=== PATIENT | female | born 1960 | race Caucasian/White ===

== ENCOUNTER 2017-12-07 05:51 | Inpatient (IN) | payer OTHER ==
[~2017-12-07] VITALS: Ht 157.5 cm; Wt 63.0 kg
[~2017-12-07 05:51] MED LIST: CREON1 EC1 PO; PRI20; PRILOSEC40 MG PO; VIC
[2017-12-07 06:03] VITALS: Ht 157.5 cm; Wt 63.0 kg
[2017-12-07 06:58] LABS: CALCIUM 8.4 mg/dL (8.5-10.1); CARBON DIOXIDE 25.9 mmol/L (21-32); CHLORIDE SERUM 101 mmol/L (98-107); CREATININE SERUM 0.7 mg/dL (0.6-1.0); GFR1 > 60 mL/min; GLUCOSE SERUM 244 mg/dL (74-106); POTASSIUM SERUM 3.3 mmol/L (3.5-5.1); SODIUM SERUM 137 mmol/L (136-145)
[2017-12-07 07:05] LABS: ALKALINE PHOSPHATASE 316 U/L (46-116); ALT/SGPT 107 U/L (14-59); AMYLASE 59 U/L (25-115); AST/SGOT 203 U/L (15-37); BILIRUBIN TOTAL 2.59 mg/dL (0.20-1.00); LIPASE 416 IU/L (73-393); TOTAL PROTEIN, SERUM 6.7 g/dL (6.4-8.2)
[2017-12-07 07:06] LABS: ALBUMIN 3.2 g/dL (3.4-5.0)
[2017-12-07 07:08] LABS: BASOPHIL % 0.1 % (0-2); PLATELET COUNT 216 x10^3mcL (130-400); RED CELL DISTRIBUTION WIDTH 14.5 % (11.5-14.5)
[2017-12-07 10:58] VITALS: BP 106/68
[2017-12-07 13:41] VITALS: BP 108/76
[2017-12-07 17:13] VITALS: BP 134/84
[2017-12-07 20:59] VITALS: BP 135/90
[2017-12-08 04:59] LABS: microscopic required? NO
[2017-12-08 05:07] LABS: urine erythrocyte NEGATIVE (NEGATIVE)
[2017-12-08 05:42] VITALS: BP 133/85
[2017-12-08 06:01] LABS: BASOPHIL % 0.3 % (0-2); PLATELET COUNT 162 x10^3mcL (130-400)
[2017-12-08 06:19] LABS: CALCIUM 7.9 mg/dL (8.5-10.1); CARBON DIOXIDE 25.3 mmol/L (21-32); CREATININE SERUM 0.6 mg/dL (0.6-1.0); GFR1 > 60 mL/min
[2017-12-08 06:32] LABS: CHLORIDE SERUM 105 mmol/L (98-107); GLUCOSE SERUM 89 mg/dL (74-106); POTASSIUM SERUM 3.6 mmol/L (3.5-5.1); SODIUM SERUM 140 mmol/L (136-145)
[2017-12-08 06:55] LABS: RED CELL DISTRIBUTION WIDTH 14.7 % (11.5-14.5)
[2017-12-08 09:17] VITALS: BP 145/90
[2017-12-08 12:48] LABS: BILIRUBIN DIRECT 4.44 mg/dL (0.0-0.2); BILIRUBIN TOTAL 5.53 mg/dL (0.20-1.00)
[2017-12-08 12:57] LABS: ALBUMIN 2.7 g/dL (3.4-5.0); TOTAL PROTEIN, SERUM 5.7 g/dL (6.4-8.2)
[2017-12-08 16:49] VITALS: BP 141/101
[2017-12-08 20:12] VITALS: BP 133/87
[2017-12-09 04:28] VITALS: BP 146/91
[2017-12-09 06:26] LABS: BASOPHIL % 0.5 % (0-2); PLATELET COUNT 163 x10^3mcL (130-400); RED CELL DISTRIBUTION WIDTH 14.4 % (11.5-14.5)
[2017-12-09 06:58] LABS: CALCIUM 8.1 mg/dL (8.5-10.1); CARBON DIOXIDE 24.1 mmol/L (21-32); CHLORIDE SERUM 100 mmol/L (98-107); CREATININE SERUM 0.6 mg/dL (0.6-1.0); GFR1 > 60 mL/min; GLUCOSE SERUM 62 mg/dL (74-106); POTASSIUM SERUM 3.1 mmol/L (3.5-5.1); SODIUM SERUM 137 mmol/L (136-145)
[2017-12-09 08:32] VITALS: BP 135/86
[2017-12-09 08:47] VITALS: BP 135/86
== END 2017-12-09 10:20 | disposition home or self-care (01) | DRG 282 ==
LOC: ED 05:51 → MU 09:09
PROVIDERS: Internal Medicine; Specialist
PROC: 0DJ08ZZ Inspection of Upper Intestinal Tract, Via Natural or Artificial Opening Endoscopic (ICD-10-PCS; principal; 2017-12-08 07:30)
DX: K85.10 Biliary acute pancreatitis without necrosis or infection (principal); K74.60 Unspecified cirrhosis of liver; K80.70 Calculus of gallbladder and bile duct without cholecystitis without obstruction; F17.210 Nicotine dependence, cigarettes, uncomplicated; F41.9 Anxiety disorder, unspecified
CPT/HCPCS: 43235; 83880; C1769; J1610; J1644; J1885; J2270; J2405; J2543; J3490; J7030; Q0092; Q9967

== ENCOUNTER 2018-03-08 23:21 | Emergency (ER) | payer OTHER ==
[~2018-03-08] VITALS: Ht 157.5 cm; Wt 56.2 kg
[2018-03-08 23:31] VITALS: Ht 157.5 cm; Wt 56.2 kg
[2018-03-09 00:57] LABS: BASOPHIL % 0.8 % (0-2); PLATELET COUNT 399 x10^3mcL (130-400); RED CELL DISTRIBUTION WIDTH 14.3 % (11.5-14.5)
[2018-03-09 01:11] LABS: CARBON DIOXIDE 26.2 mmol/L (21-32); CHLORIDE SERUM 96 mmol/L (98-107); CREATININE SERUM 0.6 mg/dL (0.6-1.0); GFR1 > 60 mL/min; GLUCOSE SERUM 158 mg/dL (74-106); POTASSIUM SERUM 3.2 mmol/L (3.5-5.1); SODIUM SERUM 130 mmol/L (136-145)
[2018-03-09 01:15] LABS: ALKALINE PHOSPHATASE 103 U/L (46-116); ALT/SGPT 31 U/L (14-59); AMYLASE 74 U/L (25-115); AST/SGOT 23 U/L (15-37); BILIRUBIN TOTAL 1.43 mg/dL (0.20-1.00); LIPASE 392 IU/L (73-393); TOTAL PROTEIN, SERUM 7.4 g/dL (6.4-8.2)
[2018-03-09 01:21] LABS: ALBUMIN 3.1 g/dL (3.4-5.0)
[2018-03-09 03:50] VITALS: BP 128/82
== END 2018-03-09 03:50 | disposition home or self-care (01) ==
LOC: ED 23:21
PROVIDERS: Emergency Medicine
DX: T83.098A Other mechanical complication of other urinary catheter, initial encounter (principal); E11.9 Type 2 diabetes mellitus without complications; M54.9 Dorsalgia, unspecified; Z88.5 Allergy status to narcotic agent; X58.XXXA Exposure to other specified factors, initial encounter; Y93.89 Activity, other specified; Y92.89 Other specified places as the place of occurrence of the external cause; Y99.8 Other external cause status
CPT/HCPCS: 36415; 83880

== ENCOUNTER 2018-03-30 17:01 | Observation (INO) | payer OTHER ==
[~2018-03-30] VITALS: Ht 157.5 cm; Wt 53.1 kg
[2018-03-30 17:06] VITALS: Ht 157.5 cm; Wt 53.1 kg
[2018-03-30 17:55] LABS: BASOPHIL % 0.4 % (0-2); PLATELET COUNT 317 x10^3mcL (130-400); RED CELL DISTRIBUTION WIDTH 14.3 % (11.5-14.5)
[2018-03-30 18:16] LABS: BILIRUBIN TOTAL 0.96 mg/dL (0.20-1.00); CALCIUM 8.8 mg/dL (8.5-10.1); CARBON DIOXIDE 22.1 mmol/L (21-32); CREATININE SERUM 1.7 mg/dL (0.6-1.0); MAGNESIUM 1.9 mg/dL (1.8-2.4); POTASSIUM SERUM 3.3 mmol/L (3.5-5.1); TOTAL PROTEIN, SERUM 8.2 g/dL (6.4-8.2)
[2018-03-30 20:21] VITALS: BP 101/67
[2018-03-31 05:24] LABS: UA SPECIFIC GRAVITY <=1.005 (1.005-1.035); microscopic required? YES; urine erythrocyte NEGATIVE (NEGATIVE)
[2018-03-31 05:29] VITALS: BP 90/56
[2018-03-31 05:33] LABS: CREATININE UR 36.8 mg/dL
[2018-03-31 05:59] LABS: BASOPHIL % 0.5 % (0-2); PLATELET COUNT 208 x10^3mcL (130-400)
[2018-03-31 06:04] LABS: RED CELL DISTRIBUTION WIDTH 14.6 % (11.5-14.5)
[2018-03-31 06:33] LABS: CALCIUM 7.9 mg/dL (8.5-10.1); CARBON DIOXIDE 19.5 mmol/L (21-32); CHLORIDE SERUM 99 mmol/L (98-107); CREATININE SERUM 0.9 mg/dL (0.6-1.0); GFR1 > 60 mL/min; GLUCOSE SERUM 125 mg/dL (74-106); SODIUM SERUM 128 mmol/L (136-145)
[2018-03-31 10:10] VITALS: BP 88/61
[2018-03-31 11:33] VITALS: BP 100/60
[2018-03-31 16:16] LABS: ALKALINE PHOSPHATASE 139 U/L (46-116); ALT/SGPT 14 U/L (14-59); AST/SGOT 11 U/L (15-37); BILIRUBIN TOTAL 0.5 mg/dL (0.20-1.00); CALCIUM 7.9 mg/dL (8.5-10.1); CHLORIDE SERUM 105 mmol/L (98-107); CREATININE SERUM 0.7 mg/dL (0.6-1.0); GFR1 > 60 mL/min; GLUCOSE SERUM 147 mg/dL (74-106); POTASSIUM SERUM 5.3 mmol/L (3.5-5.1); SODIUM SERUM 133 mmol/L (136-145)
[2018-03-31 16:20] LABS: ALBUMIN 2.6 g/dL (3.4-5.0); TOTAL PROTEIN, SERUM 5.6 g/dL (6.4-8.2)
[2018-03-31 17:19] VITALS: BP 94/61
[2018-03-31 20:39] VITALS: BP 90/58
== END 2018-03-31 22:11 | disposition left against medical advice (07) | DRG 469 ==
LOC: ED 17:01 → DU 19:09
PROVIDERS: Emergency Medicine; Internal Medicine; Internal Medicine Pulmonary Disease
DX: N17.9 Acute kidney failure, unspecified (principal); K86.2 Cyst of pancreas; E87.1 Hypo-osmolality and hyponatremia; K86.1 Other chronic pancreatitis; E86.0 Dehydration; E86.1 Hypovolemia; E87.6 Hypokalemia; K21.9 Gastro-esophageal reflux disease without esophagitis; F17.210 Nicotine dependence, cigarettes, uncomplicated; Z68.20 Body mass index [BMI] 20.0-20.9, adult
CPT/HCPCS: 99406; G0378; J2270; J7030; Q0092

== ENCOUNTER 2018-05-29 01:06 | Inpatient (IN) | payer OTHER ==
[~2018-05-29] VITALS: Ht 157.5 cm; Wt 47.3 kg
[~2018-05-29 01:06] MED LIST changes: +PRILOSEC OTC20 M1 PO; -PRILOSEC40 MG PO
[2018-05-29 02:03] LABS: BASOPHIL % 0.9 % (0-2); PLATELET COUNT 401 x10^3mcL (130-400); RED CELL DISTRIBUTION WIDTH 14.6 % (11.5-14.5)
[2018-05-29 02:15] LABS: BILIRUBIN TOTAL 1.16 mg/dL (0.20-1.00); CALCIUM 9.6 mg/dL (8.5-10.1); CARBON DIOXIDE 33.3 mmol/L (21-32); CREATININE SERUM 1.5 mg/dL (0.6-1.0)
[2018-05-29 02:16] LABS: TOTAL PROTEIN, SERUM 8.5 g/dL (6.4-8.2)
[2018-05-29 02:18] LABS: POTASSIUM SERUM 2.6 mmol/L (3.5-5.1)
[2018-05-29] MEDS ORDERED: [UNRECOGNIZED DRUG - CODE] PO (03:57)
[2018-05-29] MEDS ORDERED: PAXIL10 MG PO (03:57)
[2018-05-29 05:11] VITALS: BP 126/69; Ht 157.5 cm; Wt 47.3 kg
[2018-05-29 06:01] LABS: BASOPHIL % 0.3 % (0-2); PLATELET COUNT 277 x10^3mcL (130-400)
[2018-05-29 06:15] LABS: RED CELL DISTRIBUTION WIDTH 14.9 % (11.5-14.5)
[2018-05-29 06:23] LABS: CALCIUM 8.4 mg/dL (8.5-10.1); CARBON DIOXIDE 33.7 mmol/L (21-32); CREATININE SERUM 1.1 mg/dL (0.6-1.0); POTASSIUM SERUM 3.1 mmol/L (3.5-5.1)
[2018-05-29 08:53] VITALS: BP 93/57
[2018-05-29 13:32] VITALS: BP 104/64
[2018-05-29 17:27] VITALS: BP 94/56
[2018-05-29 20:46] VITALS: BP 96/61
[2018-05-30 06:04] LABS: BASOPHIL % 0.5 % (0-2); PLATELET COUNT 228 x10^3mcL (130-400)
[2018-05-30 06:33] VITALS: BP 91/59
[2018-05-30 06:36] LABS: ALKALINE PHOSPHATASE 61 U/L (46-116); ALT/SGPT 14 U/L (14-59); AST/SGOT 13 U/L (15-37); BILIRUBIN TOTAL 0.6 mg/dL (0.20-1.00); CALCIUM 8.3 mg/dL (8.5-10.1); CARBON DIOXIDE 29.3 mmol/L (21-32); CHLORIDE SERUM 96 mmol/L (98-107); CREATININE SERUM 0.8 mg/dL (0.6-1.0); GFR1 > 60 mL/min; GLUCOSE SERUM 126 mg/dL (74-106); MAGNESIUM 1.9 mg/dL (1.8-2.4); PHOSPHOROUS 2.6 mg/dL (2.5-4.9); POTASSIUM SERUM 3.1 mmol/L (3.5-5.1); SODIUM SERUM 129 mmol/L (136-145)
[2018-05-30 06:40] LABS: ALBUMIN 2.7 g/dL (3.4-5.0); TOTAL PROTEIN, SERUM 5.6 g/dL (6.4-8.2)
[2018-05-30 07:02] LABS: RED CELL DISTRIBUTION WIDTH 14.8 % (11.5-14.5)
[2018-05-30 10:20] VITALS: BP 95/57
[2018-05-30 13:20] VITALS: BP 95/57
[2018-05-30 13:28] VITALS: BP 95/58
[2018-05-30 15:07] LABS: CALCIUM 8.3 mg/dL (8.5-10.1); CARBON DIOXIDE 30.1 mmol/L (21-32); CHLORIDE SERUM 100 mmol/L (98-107); CREATININE SERUM 0.9 mg/dL (0.6-1.0); GFR1 > 60 mL/min; GLUCOSE SERUM 131 mg/dL (74-106); POTASSIUM SERUM 3.5 mmol/L (3.5-5.1); SODIUM SERUM 133 mmol/L (136-145)
== END 2018-05-30 16:20 | disposition home or self-care (01) | DRG 249 ==
LOC: ED 01:06 → DU 03:23
PROVIDERS: Emergency Medicine; Internal Medicine; Internal Medicine Pulmonary Disease
DX: A08.4 Viral intestinal infection, unspecified (principal); K83.1 Obstruction of bile duct; E87.1 Hypo-osmolality and hyponatremia; K86.1 Other chronic pancreatitis; E87.6 Hypokalemia; K86.9 Disease of pancreas, unspecified; E86.0 Dehydration; F17.210 Nicotine dependence, cigarettes, uncomplicated; F41.9 Anxiety disorder, unspecified; Z60.2 Problems related to living alone; Z88.5 Allergy status to narcotic agent; Z79.899 Other long term (current) drug therapy
CPT/HCPCS: J0696; J2405; J3480; J3490; J7030; J7050; J7120; Q0092

== ENCOUNTER 2018-07-04 00:58 | Emergency (ER) | payer OTHER ==
[~2018-07-04] VITALS: Ht 157.5 cm; Wt 47.6 kg
[~2018-07-04 00:58] MED LIST changes: +PAXIL10 MG PO; +[UNRECOGNIZED DRUG - CODE] PO
[2018-07-04 01:04] VITALS: Ht 157.5 cm; Wt 47.6 kg
[2018-07-04 01:59] LABS: BASOPHIL % 2.1 % (0-2); PLATELET COUNT 430 x10^3mcL (130-400); RED CELL DISTRIBUTION WIDTH 14.3 % (11.5-14.5)
[2018-07-04 02:15] LABS: ALKALINE PHOSPHATASE 88 U/L (46-116); ALT/SGPT 7 U/L (14-59); AST/SGOT 9 U/L (15-37); BILIRUBIN TOTAL 1.01 mg/dL (0.20-1.00); CALCIUM 8.8 mg/dL (8.5-10.1); CHLORIDE SERUM 100 mmol/L (98-107); CREATININE SERUM 0.7 mg/dL (0.6-1.0); GFR1 > 60 mL/min; GLUCOSE SERUM 120 mg/dL (74-106); LIPASE 334 IU/L (73-393); MAGNESIUM 1.8 mg/dL (1.8-2.4); SODIUM SERUM 140 mmol/L (136-145); TOTAL PROTEIN, SERUM 7.2 g/dL (6.4-8.2)
[2018-07-04 02:30] LABS: POTASSIUM SERUM 2.8 mmol/L (3.5-5.1)
[2018-07-04 04:51] LABS: microscopic required? NO
[2018-07-04 05:18] LABS: urine erythrocyte NEGATIVE (NEGATIVE)
[2018-07-04 06:03] VITALS: BP 117/78
== END 2018-07-04 06:03 | disposition home or self-care (01) ==
LOC: ED 00:58
PROVIDERS: Emergency Medicine
DX: R53.1 Weakness (principal); E87.6 Hypokalemia; K86.2 Cyst of pancreas; K91.89 Other postprocedural complications and disorders of digestive system; F41.9 Anxiety disorder, unspecified; Z88.5 Allergy status to narcotic agent
CPT/HCPCS: J2405; J3480; Q0092

== ENCOUNTER 2019-03-09 01:42 | Emergency (ER) | payer OTHER ==
[~2019-03-09] VITALS: Ht 157.5 cm; Wt 36.7 kg
[2019-03-09 01:48] VITALS: Ht 157.5 cm; Wt 36.7 kg
[2019-03-09 03:42] LABS: BASOPHIL % 0.2 % (0-2); PLATELET COUNT 252 x10^3mcL (130-400)
[2019-03-09 03:48] LABS: RED CELL DISTRIBUTION WIDTH 17.9 % (11.5-14.5)
[2019-03-09 04:06] LABS: ALKALINE PHOSPHATASE 853 U/L (46-116); ALT/SGPT 42 U/L (14-59); AST/SGOT 18 U/L (15-37); BILIRUBIN TOTAL 0.74 mg/dL (0.20-1.00); CALCIUM 8.8 mg/dL (8.5-10.1); CARBON DIOXIDE 24.6 mmol/L (21-32); CHLORIDE SERUM 98 mmol/L (98-107); CREATININE SERUM 0.7 mg/dL (0.6-1.0); GFR1 > 60 mL/min; LIPASE 287 IU/L (73-393); MAGNESIUM 1.7 mg/dL (1.8-2.4); PHOSPHOROUS 3.2 mg/dL (2.5-4.9); POTASSIUM SERUM 4.1 mmol/L (3.5-5.1); SODIUM SERUM 136 mmol/L (136-145); TOTAL PROTEIN, SERUM 6.3 g/dL (6.4-8.2)
[2019-03-09 04:10] LABS: ALBUMIN 2.8 g/dL (3.4-5.0)
[2019-03-09 04:12] LABS: GLUCOSE SERUM 514 mg/dL (74-106)
[2019-03-09 06:02] VITALS: BP 102/66
== END 2019-03-09 06:02 | disposition home or self-care (01) ==
LOC: ED 01:42
PROVIDERS: Emergency Medicine
DX: R53.1 Weakness (principal); R73.9 Hyperglycemia, unspecified; F41.9 Anxiety disorder, unspecified; Z88.5 Allergy status to narcotic agent; Z98.890 Other specified postprocedural states
CPT/HCPCS: 82962; J1815; J7030